=== PATIENT | male | born 1995 | race African-American/Black ===

== ENCOUNTER 2024-03-24 12:46 | Emergency (ER) | payer OTHER, SELFPAY ==
[2024-03-24 13:10] VITALS: BP 156/89; PULSE 92; RESP 18; TEMP 36.7; O2SAT 100
--- NOTE | 2024-03-24 13:16 | ED_ITS ---
HPI - Abdominal Pain General Chief Complaint: Abdominal Pain Stated Complaint: Abdominal Pain Time Seen by Provider: 03/24/24 13:16 Source: patient and RN notes reviewed Mode of arrival: ambulatory Limitations: no limitations History of Present Illness HPI narrative: 28 y/o male presented for c/o Left sided abdominal pain. Onset this morning 09. Took ibuprofen. States the pain was constant and sharp until he arrived in the clinic; pain is now gone. Denies any associated n/v/d, constipation, fever or sore throat. LBM yesterday. Related Data Home Medications ?Medication ?Instructions ?Recorded ?Confirmed ?Last Taken ?Type No Home Medications 03/24/24 03/24/24 Unknown History Allergies Allergy/AdvReac Type Severity Reaction Status Date / Time apples Allergy Intermediate Rash Uncoded 03/24/24 13:20 Review of Systems Review of Systems: CONSTITUTIONAL: Denies body aches, fever, chills ENT: Denies rhinorrhea, congestion CARDIOVASCULAR: Denies chest pain, palpitations, or edema. RESPIRATORY: Denies cough or dyspnea. GASTROINTESTINAL: Endorses abdominal pain, Denies nausea, vomiting, diarrhea, hematochezia, melena, hematemesis GENITOURINARY: Denies dysuria, hematuria, or CVA tenderness. SKIN: Denies rash MUSCULOSKELETAL: Denies back pain, joint pain, or myalgia. NEUROLOGIC: Denies headache, numbness, tingling, or weakness. All systems reviewed & are unremarkable except as noted in HPI and below PMFSH Comments At time of signature, I have reviewed and agree with nursing past medical, surgical, social and family history unless otherwise noted. Please see nursing chart for further information. There is no relevant family history pertinent to the presenting complaint Exam Narrative: GENERAL: Well-appearing, and in no acute distress. EYES: EOMI. Conjunctivae normal. ENT: Mucous membranes pink and moist. CHEST: No respiratory distress. Clear to auscultation. HEART: Regular rate and rhythm. No murmur appreciated. Normal peripheral pulses. ABDOMEN: abd soft, nondistended, normal active bowel sounds. Mildly Tender abdom en to RLQ and Left mid abdomen; No guarding, rebound tenderness, asymmetry EXTREMITIES: Normal range of motion. No edema. SKIN: Warm, dry, no rash. Capillary refill normal. Normal skin turgor. NEURO: No focal deficits. Alert and oriented x3. PSYCH: Normal affect. Course Course Emergency Course: Patient is aware of diagnosis, understands and agrees to treatment plan. Anticipatory guidance given. Patient agrees to follow-up as directed and is aware of reasons to seek care at the emergency department. Portions of this record may have been created with voice recognition software Level of Care: Express Care Visit MDM - Abdominal Pain MDM Narrative Medical decision making narrative: Discussed physical exam findings. Pt reports the original pain is now resolved. Discussed possible etiologies, pt will monitor. Advised supportive measures and signs/symptoms to go to the ER. Pt is appropriate for outpt treatment and f/u. Differential Diagnosis Differential diagnosis: Likely abdominal pain, acute appendicitis, calculus of kidney, constipation, diverticulitis, gastroenteritis, pancreatitis and small bowel obstruction Discharge Plan Discharge Clinical Impression: Abdominal pain Patient Disposition: Home, Self-Care Condition: Stable Instructions: GERD (Gastroesophageal Reflux Disease) (ED), Abdominal Pain (ED) Additional Instructions: Stay hydrated. [place] foods (bananas, rice, applesauce, toast, crackers) Avoid fatty, greasy, fried or spicy foods. Limit dairy until symptoms are improved. For constipation: You can take Senokot or Miralax powder according to package directions To maintain soft stools after constipation is relieved, you may take Colace 2 times per day. Maintain fluid intake 6-8 glasses per day. Increase fibers (fruits and vegetables) in your diet. Decrease or eliminate intake of fast food and junk foods. You should go to the hospital if you experience persistent nausea and vomiting that does not resolve and does not allow you to tolerate any food or fluids, fevers, increasing abdominal pain, persistent diarrhea, dizziness, fainting, or for any other concerns. Follow up with primary care provider in 3 days. Patient Language: Lebanese Prescriptions: No Action No Home Medications Follow-up/Referrals: PHYSICIAN,CUSTOMER SERVICES MANAGER [Primary Care Provider] - Time of Disposition: 13:31
== END 2024-03-24 13:35 | disposition home or self-care (01) ==
PROVIDERS: Emergency Provider Nurse Practitioner Family
DX: R10.31 Right lower quadrant pain (principal); R10.9 Unspecified abdominal pain
CPT/HCPCS: 99202; G0463